=== PATIENT | male | born 1965 | race African-American/Black ===

== ENCOUNTER 2018-07-21 16:38 | Emergency (ER) | END 2018-07-23 00:34 ==

== ENCOUNTER 2019-02-26 11:49 | Emergency (ER) | payer OTHER ==
[~2019-02-26] VITALS: Ht 175.3 cm; Wt 81.0 kg
[~2019-02-26 11:49] MED LIST: FLUO20CA22 PO; OLAN10TA7 PO; QUET100T PO; QUET200T PO
[2019-02-26 11:54] VITALS: Ht 175.3 cm; Wt 81.0 kg
--- NOTE | 2019-02-26 13:57 | PSY ---
Date/Time of Note Date/Time of Note DATE: 02/26/19 TIME: 13:52 Psychiatric Subjective Eval Subjective Evaluation Patient location: emergency Chief Complaint: pt is bib self with c/o suicidal ideation "for a long time" History of present illness 53 yo homeless male with hx psychosis and alcohol use jamie presented to ED intoxicated, BAL 423, c/o SI. Pt says he is here to get his rx for psych meds because he wants to take "better care of himself". He says he was feeling suicidal "for a long time" but he is not suicidal now and wants to go to his daughter's home He denies Si or HI; + AH, non command, no VH, no Pi.Pt does nto recall when was the last time he took any psych meds.. Past psychiatric history prior inpt due to SI and ETOH Hospitalization: Suicidal Attempt(s) Family History denies Medical history Problems Medical Problems: (1) Suicidal ideation Status: Acute Allergies: Coded Allergies: No Known Allergy (Unverified , 07/21/18) Substance Abuse Substance abuse history: Yes Prior substance abuse treatmen: Yes Social History Marital status: single DPA/Conservatorship: No Occupation/[facility]: unemployed Psychiatric Objective Eval Review of Systems: Review of Systems: Not Applicable Mental Status Examination: Appearance: Disheveled Eye Contact: Good Psychomotor Activity: Normal Behavior: Cooperative Speech: Clear AFFECT: Appropriate Mood: Depressed Though Process: Linear Thought Content: Hallucinations Suicidal: No Homicidal: No On 72 hour hold: No Orientation: x3 Cognition: Alert Insight: Impared Judgement: Impared Laboratory Results Laboratory Tests Test 02/26/19 12:56 White Blood Count 6.4 10^3/ul Red Blood Count 4.65 10^6/ul Hemoglobin 14.5 g/dl Hematocrit 43.8 % Mean Corpuscular Volume 94.2 fl Mean Corpuscular Hemoglobin 31.2 pg Mean Corpuscular Hemoglobin Concent 33.1 g/dl Red Cell Distribution Width 16.6 % Platelet Count 232 10^3/UL Mean Platelet Volume 8.9 fl Immature Granulocytes % 0.200 % Neutrophils % 31.7 % Lymphocytes % 55.8 % Monocytes % 8.1 % Eosinophils % 3.6 % Basophils % 0.6 % Nucleated Red Blood Cells % 0.0 /100WBC Immature Granulocytes # 0.010 10^3/ul Neutrophils # 2.0 10^3/ul Lymphocytes # 3.6 10^3/ul Monocytes # 0.5 10^3/ul Eosinophils # 0.2 10^3/ul Basophils # 0.0 10^3/ul Nucleated Red Blood Cells # 0.0 10^3/ul Sodium Level 147 mmol/L Potassium Level 4.2 mmol/L Chloride Level 109 mmol/L Carbon Dioxide Level 26 mmol/L Anion Gap 12 Blood Urea Nitrogen 13 mg/dl Creatinine 0.76 mg/dl Est Glomerular Filtrat Rate mL/min > 60 mL/min Glucose Level 95 mg/dl Calcium Level 9.6 mg/dl Total Bilirubin 0.4 mg/dl Direct Bilirubin 0.00 mg/dl Indirect Bilirubin 0.4 mg/dl Aspartate Amino Transf (AST/SGOT) 44 IU/L Alanine Aminotransferase (ALT/SGPT) 26 IU/L Alkaline Phosphatase 95 IU/L Total Protein 8.3 g/dl Albumin 4.8 g/dl Globulin 3.50 g/dl Albumin/Globulin Ratio 1.37 Salicylates Level < 1.0 mg/dl Acetaminophen Level < 10.0 ug/ml Ethyl Alcohol Level 344.0 mg/dl Assessment and Plan Assessment/Diagnosis Diagnosis Schizophrenia. ALcohol Use disorder Recommendation/Plan Medication Management please rx Zyprexa 10 mg po qhs and 5 mg po qam Multiple antipsychotics: No Discharge Disposition: Community (home) Legal Status: Voluntary Other please refer to a sober living, alcohol treatment program[facility] CHRIS HOYOS MD Feb 26, 2019 13:57
[2019-02-26 16:36] VITALS: BP 149/94; PULSE 78; RESP 18
[2019-02-26] MEDS ORDERED: OLAN10TA7 PO (16:41)
[2019-02-26] MEDS ORDERED: OLAN5TAB5 PO (16:41)
--- NOTE | 2019-02-26 18:33 | ERD ---
ER Documentation Chief Complaint Chief Complaint pt is bib self with c/o suicidal ideation "for a long time" HPI Patient is a 53-year-old male with depression and schizophrenia who presents with suicidal ideation. The patient's symptoms started yesterday. The patient had a plan to jump into water and he cannot swim. He is taking Seroquel and Zyprexa. He says "I think I need to go to a psychiatric facility". Upon review of old medical records the patient had one previous visit to the ER in July 2018. However review of the emergency department information exchange system shows visits to 3 separate emergency departments for a total of 18 visits over the past 1 year. ROS All systems reviewed and are negative except as per history of present illness. Medications Home Meds Active Scripts Olanzapine* (Zyprexa*) 5 Mg Tablet, 5 MG PO QAM, #7 TAB Prov:DIANA LEACH MD 02/26/19 Olanzapine* (Zyprexa*) 10 Mg Tablet, 10 MG PO QHS, #7 TAB Prov:DIANA LEACH MD 02/26/19 Reported Medications Olanzapine* (Zyprexa*) 10 Mg Tablet, 10 MG PO DAILY, #30 TAB 07/21/18 Fluoxetine Hcl* (Fluoxetine Hcl*) 20 Mg Capsule, 20 MG PO DAILY, CAP 07/21/18 Quetiapine Fumarate* (Seroquel*) 200 Mg Tablet, 200 MG PO HS, #30 TAB 07/21/18 Quetiapine Fumarate* (Seroquel*) 100 Mg Tablet, 100 MG PO BID, #60 TAB 07/21/18 Allergies Allergies: Coded Allergies: No Known Allergy (Unverified , 07/21/18) PMhx/Soc Medical and Surgical Hx: pt denies Medical Hx Hx Cardiac Disorders: Yes (HTN) Hx Miscellaneous Medical Probl: Yes (PSYCH) Hx Alcohol Use: Yes (DAILY) Hx Substance Use: Yes (MARIJUANA) Hx Tobacco Use: Yes Smoking Status: Current every day smoker FmHx Family History: diabetes Physical Exam Vitals Vital Signs Date Temp Pulse Resp B/P (MAP) Pulse Ox O2 O2 Flow FiO2 Time Delivery Rate 02/26/19 97.9 78 18 149/94 98 16:36 (112) 02/26/19 97.9 99 18 173/99 98 11:54 (123) Physical Exam Const: No acute distress Head: Atraumatic Eyes: Normal Conjunctiva ENT: Normal External Ears, Nose and Mouth. Neck: Full range of motion. No meningismus. Resp: Clear to auscultation bilaterally Cardio: Regular rate and rhythm, no murmurs Abd: Soft, non tender, non distended. Normal bowel sounds Skin: No petechiae or rashes Back: No midline or flank tenderness Ext: No cyanosis, or edema Neur: Awake and alert Psych: Positive for complaint of suicidal ideation, normal affect Result Diagram: 02/26/19 1256 02/26/19 1256 Results 24 hrs Laboratory Tests Test 02/26/19 12:56 02/26/19 13:04 02/26/19 13:05 White Blood Count 6.4 10^3/ul Red Blood Count 4.65 10^6/ul Hemoglobin 14.5 g/dl Hematocrit 43.8 % Mean Corpuscular Volume 94.2 fl Mean Corpuscular Hemoglobin 31.2 pg Mean Corpuscular 33.1 g/dl Hemoglobin Concent Red Cell Distribution Width 16.6 % Platelet Count 232 10^3/UL Mean Platelet Volume 8.9 fl Immature Granulocytes % 0.200 % Neutrophils % 31.7 % Lymphocytes % 55.8 % Monocytes % 8.1 % Eosinophils % 3.6 % Basophils % 0.6 % Nucleated Red Blood Cells % 0.0 /100WBC Immature Granulocytes # 0.010 10^3/ul Neutrophils # 2.0 10^3/ul Lymphocytes # 3.6 10^3/ul Monocytes # 0.5 10^3/ul Eosinophils # 0.2 10^3/ul Basophils # 0.0 10^3/ul Nucleated Red Blood Cells # 0.0 10^3/ul Sodium Level 147 mmol/L Potassium Level 4.2 mmol/L Chloride Level 109 mmol/L Carbon Dioxide Level 26 mmol/L Anion Gap 12 Blood Urea Nitrogen 13 mg/dl Creatinine 0.76 mg/dl Est Glomerular Filtrat > 60 mL/min Rate mL/min Glucose Level 95 mg/dl Calcium Level 9.6 mg/dl Total Bilirubin 0.4 mg/dl Direct Bilirubin 0.00 mg/dl Indirect Bilirubin 0.4 mg/dl Aspartate Amino 44 IU/L Transf (AST/SGOT) Alanine 26 IU/L Aminotransferase (ALT/SGPT) Alkaline Phosphatase 95 IU/L Total Protein 8.3 g/dl Albumin 4.8 g/dl Globulin 3.50 g/dl Albumin/Globulin Ratio 1.37 Salicylates Level < 1.0 mg/dl Acetaminophen Level < 10.0 ug/ml Ethyl Alcohol Level 344.0 mg/dl Urine Color YELLOW Urine Clarity SLIGHTLY CLOUDY Urine pH 5.0 Urine Specific [place] 1.029 Urine Ketones TRACE mg/dL Urine Nitrite NEGATIVE mg/dL Urine Bilirubin NEGATIVE mg/dL Urine Urobilinogen 1+ mg/dL Urine Leukocyte Esterase NEGATIVE [place]/ul Urine Microscopic RBC 1 /HPF Urine Microscopic WBC 1 /HPF Urine Bacteria FEW /HPF Urine Mucus MANY /HPF Urine Hemoglobin 2+ mg/dL Urine Glucose NEGATIVE mg/dL Urine Total Protein 1+ mg/dl Urine Opiates Screen Negative Urine Barbiturates Negative Urine Amphetamines Screen Negative Urine Benzodiazepines Screen Negative Urine Cocaine Screen Negative Urine Cannabinoids Positive Procedures/MDM Smoking Cessation Therapy: Pt. was lectured for greater than 3 minutes on the health risks of continued smoking and the benefits of cessation. Patient is a 53-year-old male with depression and schizophrenia who presents with complaints of suicidal ideation. He was seen by psychiatry who does not feel the patient requires a 5150 hold at this time. The patient will be discharged with 1 week's worth of Zyprexa per psychiatric recommendations. The patient had an alcohol level of over 300 and will be discharged when he is clinically sober. Departure Diagnosis: Primary Impression: Alcohol abuse Additional Impression: Suicidal ideation Condition: Fair Patient Instructions: Recognizing Suicide Warning Signs in Yourself, Alcohol Abuse Referrals: [facility] YOU HAVE RECEIVED A MEDICAL SCREENING EXAM AND THE RESULTS INDICATE THAT YOU DO NOT HAVE A CONDITION THAT REQUIRES URGENT TREATMENT IN THE EMERGENCY DEPARTMENT. FURTHER EVALUATION AND TREATMENT OF YOUR CONDITION CAN WAIT UNTIL YOU ARE SEEN IN YOUR DOCTORS OFFICE WITHIN THE NEXT 1-2 DAYS. IT IS YOUR RESPONSIBILITY TO MAKE AN APPOINTMENT FOR FOLOW-UP CARE. IF YOU HAVE A PRIMARY DOCTOR --you should call your primary doctor and schedule an appointment IF YOU DO NOT HAVE A PRIMARY DOCTOR YOU CAN CALL OUR PHYSICIAN REFERRAL HOTLINE AT IF YOU CAN NOT AFFORD TO SEE A PHYSICIAN YOU CAN CHOSE FROM THE FOLLOWING [facility] [address] [facility]. [facility] [address] [facility]. [facility] [address] [facility]. [facility] [address] [facility]. [facility] [address] [facility]. [facility] [address] Additional Instructions: SPECIALIST: YOU HAVE A MEDICAL CONDITION WHICH REQUIRES YOU TO SEE A SPECI ALIST WITHIN THE NEXT 1-2 DAYS. PLEASE FOLLOW UP WITH YOUR PRIMARY PHYSICIAN FOR REFFERAL.IF YOU DO NOT HAVE A PRIMARY CARE PHYSICIAN AND/OR YOU CAN NOT AFFORD TO SEE A PHYSICIAN THE FOLLOWING RESOURCES HAVE BEEN SUPPLIED TO YOU. IT IS YOUR RESPONSIBILITY TO BE SEEN BY THE SPECIALIST DIANA LEACH MD Feb 26, 2019 18:33
== END 2019-02-26 17:23 | disposition home or self-care (01) ==
LOC: E/R 11:49
DX: F10.10 Alcohol abuse, uncomplicated (principal); I10 Essential (primary) hypertension; F17.210 Nicotine dependence, cigarettes, uncomplicated
CPT/HCPCS: 80053; 80307; 81001; 85025; Z7502; 99283